=== PATIENT | female | born 1955 | race Caucasian/White ===

== ENCOUNTER 2019-02-13 19:04 | Observation (INO) ==
[2019-02-13 20:05] LABS: Basophils % 0.4 % (0.0-0.8); Eosinophils # 0.2 10*3/uL (0.0-0.87); Eosinophils % 3.1 % (0.00-10.9); Hematocrit 25.9 VOL% (35.7-47.0); Hemoglobin 8.4 GM/DL (12.0-16.0); Immature Granulocytes % 1.9 %; Immature Granulocytes Absolute 0.09 #; Lymphocytes # 0.8 10*3/uL (1.4-4.0); Lymphocytes % 15.7 % (21.3-54.2); Mean Corpuscular HGB Conc 32.4 GM/DL (32-36); Mean Corpuscular Volume 92.2 FL (87-102); Mean Platelet Volume 10.1 FL (9.6-12.0); Monocytes % 8.5 % (1.7-12.7); Neutrophils % 70.4 % (38.7-73.9); Platelet Count 131 T/CUMM (130-400); Red Blood Count 2.81 MC/CUMM (3.8-5.5); Red Cell Distribution Width 15.8 % (9.3-17.3); White Blood Count 4.8 T/CUMM (4-12)
[2019-02-13 20:17] LABS: INR 0.9; PT Patient Result 9.8 SECS (9.6-12.2)
[2019-02-13 20:23] LABS: Alanine Aminotransferase 13 U/L (13-56); Albumin 2.7 G/DL (3.4-5.0); Alkaline Phosphatase 76 U/L (45-117); Aspartate Amino Transferase 13 U/L (0-37); Bilirubin,Total < 0.39 MG/DL (0.2-1.0); Blood Urea Nitrogen 16 MG/DL (7-18); Calcium 8.6 MG/DL (8.5-10.1); Glucose 140 MG/DL (74-106); Osmolality,Calculated 277.7 MOS/KG (273-304); Total Protein 6.9 G/DL (6.4-8.3)
[2019-02-13] MEDS ORDERED: MORPHINE 4 MG/1 ML VIAL IV PRN (21:20)
[2019-02-13] MEDS ORDERED: NICOTINE 21 MG/24 HR PATCH TRANSDERM PRN (21:20)
[2019-02-13] MEDS ORDERED: ONDANSETRON 4 MG/2 ML VIAL IV PRN (21:20)
[2019-02-13] MEDS ORDERED: PROMETHAZINE 25 MG TABLET PO PRN (23:21)
[2019-02-13] MEDS ORDERED: traMADol 50 MG TABLET PO PRN (23:21)
[2019-02-13] MEDS ORDERED: NON-FORMULARY MEDICATION (Ondansetron Hcl 8 MG) PO PRN (23:21)
[2019-02-14] MEDS: GABAPENTIN 400 MG CAPSULE PO PRN ×2 (00:38→20:49)
[2019-02-14] MEDS: PANTOPRAZOLE INJ 200 MG in SODIUM CHLORIDE 0.9% 250 ML IV SCH ×2 (00:38→23:00)
[2019-02-14] MEDS ORDERED: PHENYLEPH/MINERAL OIL/PETROLAT 57 GM TUBE TOP PRN (01:18)
[2019-02-14 05:32] LABS: Basophils % 0.4 % (0.0-0.8); Eosinophils # 0.1 10*3/uL (0.0-0.87); Eosinophils % 3.1 % (0.00-10.9); Hematocrit 25.8 VOL% (35.7-47.0); Hemoglobin 8.2 GM/DL (12.0-16.0); Immature Granulocytes % 2.4 %; Immature Granulocytes Absolute 0.11 #; Lymphocytes % 20.9 % (21.3-54.2); Mean Corpuscular HGB Conc 31.8 GM/DL (32-36); Mean Corpuscular Volume 91.8 FL (87-102); Mean Platelet Volume 10.5 FL (9.6-12.0); Monocytes % 10.4 % (1.7-12.7); NRBC # 0.04 10*3/uL; Neutrophils % 62.8 % (38.7-73.9); Platelet Count 128 T/CUMM (130-400); Red Blood Count 2.81 MC/CUMM (3.8-5.5); Red Cell Distribution Width 15.9 % (9.3-17.3); White Blood Count 4.5 T/CUMM (4-12)
[2019-02-14] MEDS ORDERED: SODIUM CHLORIDE 0.9% 1,000 ML IV PRN (07:59)
[2019-02-14] MEDS: LEVOTHYROXINE 88 MCG TABLET PO SCH (09:15)
[2019-02-14] MEDS: MAGNESIUM CHLORIDE 64 MG TABLET PO SCH ×2 (09:15→20:48)
[2019-02-14] MEDS: CITALOPRAM 20 MG TABLET PO SCH (09:15)
[2019-02-14] MEDS: POTASSIUM CHLORIDE 20 MEQ TABLET PO SCH (09:16)
[2019-02-14] MEDS: LIDOCAINE 2% TOP JELLY 5 ML TUBE TOP SCH ×2 (16:42→20:49)
[2019-02-14] MEDS: PRAMOXINE/HYDROCORTISONE RECTAL FOAM 10 GM CAN TOP PRN ×2 (16:43→20:50)
[2019-02-14 17:36] LABS: Hematocrit 32.4 VOL% (35.7-47.0)
[2019-02-14 17:49] LABS: Hemoglobin 10.7 GM/DL (12.0-16.0)
[2019-02-14] MEDS ORDERED: TEMAZEPAM 15 MG CAPSULE PO SCH (21:00)
[2019-02-15] MEDS: PANTOPRAZOLE INJ 200 MG in SODIUM CHLORIDE 0.9% 250 ML IV SCH (05:15)
[2019-02-15 05:52] LABS: Basophils % 0.3 % (0.0-0.8); Eosinophils # 0.2 10*3/uL (0.0-0.87); Eosinophils % 3.5 % (0.00-10.9); Hematocrit 31.5 VOL% (35.7-47.0); Hemoglobin 10.4 GM/DL (12.0-16.0); Immature Granulocytes % 1.5 %; Immature Granulocytes Absolute 0.09 #; Lymphocytes # 1.1 10*3/uL (1.4-4.0); Lymphocytes % 18.2 % (21.3-54.2); Mean Corpuscular Volume 90.3 FL (87-102); Mean Platelet Volume 10.9 FL (9.6-12.0); Monocytes % 11.9 % (1.7-12.7); Neutrophils % 64.6 % (38.7-73.9); Platelet Count 124 T/CUMM (130-400); Red Blood Count 3.49 MC/CUMM (3.8-5.5)
[2019-02-15 06:10] LABS: Calcium 9.2 MG/DL (8.5-10.1); Osmolality,Calculated 283.1 MOS/KG (273-304)
[2019-02-15] MEDS: LEVOTHYROXINE 88 MCG TABLET PO SCH (06:44)
[2019-02-15] MEDS: MAGNESIUM CHLORIDE 64 MG TABLET PO SCH (09:00)
[2019-02-15] MEDS: POTASSIUM CHLORIDE 20 MEQ TABLET PO SCH (09:00)
[2019-02-15] MEDS: CITALOPRAM 20 MG TABLET PO SCH (09:00)
[2019-02-15] MEDS: LIDOCAINE 2% TOP JELLY 5 ML TUBE TOP SCH (09:01)
[2019-02-15] MEDS: PRAMOXINE/HYDROCORTISONE RECTAL FOAM 10 GM CAN TOP PRN (09:02)
[2019-02-15 11:39] VITALS: BP 135/81
== END 2019-02-15 14:15 | disposition home or self-care (01) ==
LOC: N.ED 19:04 → N.EDINP 19:04 → N.4E 21:59
PROVIDERS: ADMIT Hospitalist; ATTEND Hospitalist